=== PATIENT | female | born 1955 | race Caucasian/White ===

== ENCOUNTER 2020-09-27 19:51 | Inpatient (IN) | payer MEDICARE ==
[2020-09-27 19:59] VITALS: RESP 18
[2020-09-27 20:26] LABS: Appearance,Urine Clear (Clear); Bilirubin,Urine Negative (Negative); Blood,Urine Negative (Negative); Color,Urine Yellow; Glucose,Urine (UA) Negative (Negative); Ketones,Urine Negative (Negative); Leukocyte Esterase,Urine Negative (Negative); Nitrite,Urine Negative (Negative); Protein,Urine Negative (Negative); Specific Gravity,Urine 1.013 (1.001-1.035); Urobilinogen,Urine <2.0 mg/dL (<2.0)
--- NOTE | 2020-09-27 20:28 | ED ---
Psych HPI - General Chief Complaint: Psychiatric Symptoms Stated Complaint: Mental Health Time Seen by Provider: 09/27/20 19:55 Source: patient Mode of arrival: ambulatory - History of Present Illness Initial Comments: Patient is a 65 year old female with past medical history of COPD and diabetes who presents to the emergency department accompanied by her daughter. Daughter states the patient has a history of schizophrenia and bipolar. She was hospitalized at [facility] in [place] for several days for mood stabilization. Daughter requested that the patient not be discharged that she did not feel that she was ready however they released the patient today. She went home on trazodone which is a medication the patient had previously overdosed on several years back. The daughter states that the patient has been "all over the place". She has manic behavior. She has tangential thoughts. Patient unaware of surroudings. Daughter states that she's had very abnormal behaviors - behaviors such as being in public and attempting to take her clothes off. Daughter supposed to go back to work tomorrow and she is concerned about the patient staying alone. She is requesting repeat evaluation. - Related Data Home Medications Medication Instructions Recorded Confirmed Albuterol Sulfate [Albuterol 2 puff PO Q6H PRN 09/27/20 09/28/20 Sulfate Hfa] Aspirin EC [Ecotrin Low Dose] 81 mg PO DAILY 09/27/20 09/28/20 Budesonide/Formoterol Fumarate 2 puff INHALATION RT-BID 09/27/20 09/28/20 [Symbicort 160-4.5 Mcg Inhaler] Docusate Sodium [Dok] 100 mg PO BID PRN 09/27/20 09/28/20 glipiZIDE [Glucotrol] 5 mg PO BID 09/27/20 09/28/20 Previous Rx's Medication Instructions Recorded Acetaminophen Tab [Tylenol] 650 mg PO Q4HR PRN tab 09/30/20 Donepezil HCl [Aricept] 5 mg PO HS 30 Days tab 09/30/20 [place] Carbonate 450 mg PO BID 30 Days cap 09/30/20 Melatonin 10 mg PO HS 30 Days tablet 09/30/20 Nicotine 21Mg/24Hr Patch [Habitrol] 1 patch TRANSDERM DAILY 14 Days 09/30/20 patch Prazosin HCl 2 mg PO HS 30 Days cap 09/30/20 Sertraline [Zoloft] 50 mg PO DAILY 30 Days tab 09/30/20 fluPHENAZine [Prolixin 1MG] 2 mg PO BID 30 Days tablet 09/30/20 Allergies Allergy/AdvReac Type Severity Reaction Status Date / Time Penicillins Allergy Unknown Verified 09/28/20 03:26 tuberculin,PPD,multi-puncture Allergy Unknown Verified 09/28/20 03:26 Review of Systems ROS Statement: Those systems with pertinent positive or pertinent negative responses have been documented in the HPI. ROS Other: All systems not noted in ROS Statement are negative. Past Medical History Past Medical History: COPD, Diabetes Mellitus History of Any Multi-Drug Resistant Organisms: None Reported Past Surgical History: Orthopedic Surgery Additional Past Surgical History / Comment(s): right knee, Past Psychological History: Bipolar, Depression, PTSD, Schizophrenia Smoking Status: Current every day smoker Past Alcohol Use History: None Reported Past Drug Use History: None Reported General Exam Limitations: altered mental status General appearance: alert, in no apparent distress Head exam: Present: atraumatic, normocephalic, normal inspection Eye exam: Present: normal appearance, PERRL, EOMI. Absent: scleral icterus, conjunctival injection, periorbital swelling ENT exam: Present: normal exam, mucous membranes moist Neck exam: Present: normal inspection. Absent: tenderness, meningismus, l ymphadenopathy Respiratory exam: Present: normal lung sounds bilaterally. Absent: respiratory distress, wheezes, rales, rhonchi, stridor Cardiovascular Exam: Present: regular rate, normal rhythm, normal heart sounds. Absent: systolic murmur, diastolic murmur, rubs, gallop, clicks GI/Abdominal exam: Present: soft, normal bowel sounds. Absent: distended, tenderness, guarding, rebound, rigid Extremities exam: Present: normal inspection, full ROM, normal capillary refill. Absent: tenderness, pedal edema, joint swelling, calf tenderness Back exam: Present: normal inspection Neurological exam: Present: alert, oriented X3, CN II-XII intact Psychiatric exam: Present: flat affect, other (tangential speech) Skin exam: Present: warm, dry, intact, normal color. Absent: rash Course Vital Signs 09/27/20 19:55 Temperature 97.9 F Pulse Rate 79 Respiratory 18 Rate Blood Pressure 175/83 O2 Sat by Pulse 95 Oximetry Medical Decision Making - Medical Decision Making Upon arrival patient was placed into room 14. A thorough history and physical exam was performed. Accu-Chek is performed and patient provides a urine sample. She is cleared for EPS evaluation. Psychiatrist is requesting laboratory studies. These are performed and results are discussed with the patient. Melany nt to sign herself in and is currently awaiting transfer to [facility]. - Lab Data Result diagrams: 09/27/20 22:33 09/29/20 06:26 Lab Results 09/27/20 09/27/20 09/27/20 Range/Units 20:24 20:24 20:59 WBC (3.8-10.6) k/uL RBC (3.80-5.40) m/uL Hgb (11.4-16.0) gm/dL Hct (34.0-46.0) % MCV (80.0-100.0) fL MCH (25.0-35.0) pg MCHC (31.0-37.0) g/dL RDW (11.5-15.5) % Plt Count (150-450) k/uL MPV Neutrophils % % Lymphocytes % % Monocytes % % Eosinophils % % Basophils % % Neutrophils # (1.3-7.7) k/uL Lymphocytes # (1.0-4.8) k/uL Monocytes # (0-1.0) k/uL Eosinophils # (0-0.7) k/uL Basophils # (0-0.2) k/uL Hypochromasia POC Glucose (mg/dL) 144 H (75-99) mg/dL POC Glu Chief Lock Tender Operator ID Susana Love Estimated Ave Glu mg/dL Hemoglobin A1c (4.0-6.0) % TSH (0.465-4.680) mIU/L Urine Color Yellow Urine Appearance Clear (Clear) Urine pH 7.0 (5.0-8.0) Ur Specific [place] 1.013 (1.001-1.035) Urine Protein Negative (Negative) Urine Glucose (UA) Negative (Negative) Urine Ketones Negative (Negative) Urine Blood Negative (Negative) Urine Nitrite Negative (Negative) Urine Bilirubin Negative (Negative) Urine Urobilinogen <2.0 (<2.0) mg/dL Ur Leukocyte Esterase Negative (Negative) Urine HCG, Qual Not Detected (Not Detectd) Urine Opiates Screen Not Detected (NotDetected) Ur Oxycodone Screen Not Detected (NotDetected) Urine Methadone Screen Not Detected (NotDetected) Ur Propoxyphene Screen Not Detected (NotDetected) Ur Barbiturates Screen Not Detected (NotDetected) U Tricyclic Antidepress Not Detected (NotDetected) Ur Phencyclidine Scrn Not Detected (NotDetected) Ur Amphetamines Screen Not Detected (NotDetected) U Methamphetamines Scrn Not Detected (NotDetected) U Benzodiazepines Scrn Not Detected (NotDetected) Urine Cocaine Screen Not Detected (NotDetected) U Marijuana (THC) Screen Not Detected (NotDetected) Coronavirus (PCR) (Not Detectd) 09/27/20 09/27/20 09/27/20 Range/Units 22:33 22:33 22:33 WBC 8.3 (3.8-10.6) k/uL RBC 4.26 (3.80-5.40) m/uL Hgb 13.3 (11.4-16.0) gm/dL Hct 39.2 (34.0-46.0) % MCV 92.1 (80.0-100.0) fL MCH 31.2 (25.0-35.0) pg MCHC 33.8 (31.0-37.0) g/dL RDW 14.0 (11.5-15.5) % Plt Count 197 (150-450) k/uL MPV 6.8 Neutrophils % 67 % Lymphocytes % 22 % Monocytes % 5 % Eosinophils % 3 % Basophils % 1 % Neutrophils # 5.6 (1.3-7.7) k/uL Lymphocytes # 1.9 (1.0-4.8) k/uL Monocytes # 0.4 (0-1.0) k/uL Eosinophils # 0.2 (0-0.7) k/uL Basophils # 0.1 (0-0.2) k/uL Hypochromasia Slight POC Glucose (mg/dL) (75-99) mg/dL POC Glu Chief Lock Tender Operator ID Estimated Ave Glu mg/dL 123 Hemoglobin A1c 5.9 (4.0-6.0) % TSH 2.170 (0.465-4.680) mIU/L Urine Color Urine Appearance (Clear) Urine pH (5.0-8.0) Ur Specific [place] (1.001-1.035) Urine Protein (Negative) Urine Glucose (UA) (Negative) Urine Ketones (Negative) Urine Blood (Negative) Urine Nitrite (Negative) Urine Bilirubin (Negative) Urine Urobilinogen (<2.0) mg/dL Ur Leukocyte Esterase (Negative) Urine HCG, Qual (Not Detectd) Urine Opiates Screen (NotDetected) Ur Oxycodone Screen (NotDetected) Urine Methadone Screen (NotDetected) Ur Propoxyphene Screen (NotDetected) Ur Barbiturates Screen (NotDetected) U Tricyclic Antidepress (NotDetected) Ur Phencyclidine Scrn (NotDetected) Ur Amphetamines Screen (NotDetected) U Methamphetamines Scrn (NotDetected) U Benzodiazepines Scrn (NotDetected) Urine Cocaine Screen (NotDetected) U Marijuana (THC) Screen (NotDetected) Coronavirus (PCR) (Not Detectd) 09/27/20 Range/Units 22:35 WBC (3.8-10.6) k/uL RBC (3.80-5.40) m/uL Hgb (11.4-16.0) gm/dL Hct (34.0-46.0) % MCV (80.0-100.0) fL MCH (25.0-35.0) pg MCHC (31.0-37.0) g/dL RDW (11.5-15.5) % Plt Count (150-450) k/uL MPV Neutrophils % % Lymphocytes % % Monocytes % % Eosinophils % % Basophils % % Neutrophils # (1.3-7.7) k/uL Lymphocytes # (1.0-4.8) k/uL Monocytes # (0-1.0) k/uL Eosinophils # (0-0.7) k/uL Basophils # (0-0.2) k/uL Hypochromasia POC Glucose (mg/dL) (75-99) mg/dL POC Glu Chief Lock Tender Operator ID Estimated Ave Glu mg/dL Hemoglobin A1c (4.0-6.0) % TSH (0.465-4.680) mIU/L Urine Color Urine Appearance (Clear) Urine pH (5.0-8.0) Ur Specific [place] (1.001-1.035) Urine Protein (Negative) Urine Glucose (UA) (Negative) Urine Ketones (Negative) Urine Blood (Negative) Urine Nitrite (Negative) Urine Bilirubin (Negative) Urine Urobilinogen (<2.0) mg/dL Ur Leukocyte Esterase (Negative) Urine HCG, Qual (Not Detectd) Urine Opiates Screen (NotDetected) Ur Oxycodone Screen (NotDetected) Urine Methadone Screen (NotDetected) Ur Propoxyphene Screen (NotDetected) Ur Barbiturates Screen (NotDetected) U Tricyclic Antidepress (NotDetected) Ur Phencyclidine Scrn (NotDetected) Ur Amphetamines Screen (NotDetected) U Methamphetamines Scrn (NotDetected) U Benzodiazepines Scrn (NotDetected) Urine Cocaine Screen (NotDetected) U Marijuana (THC) Screen (NotDetected) Coronavirus (PCR) Not Detected (Not Detectd) - EKG Data EKG Comments: EKG demonstrates sinus bradycardia with a ventricular rate of 58. IL interval 160. QRS E4. QTC of 410. No acute ST segment elevations or depressions concerning for ischemic changes Disposition Clinical Impression: Acute psychosis Disposition: TRANSFER TO PSYCH HOSP/UNIT Condition: Stable Is patient prescribed a controlled substance at d/c from ED?: No
[2020-09-27 20:47] LABS: Amphetamine Screen,Urine Not Detected (NotDetected); Barbiturate Screen,Urine Not Detected (NotDetected); Benzodiazepines Screen,Urine Not Detected (NotDetected); Cocaine Screen,Urine Not Detected (NotDetected); Methadone Screen, Urine Not Detected (NotDetected); Opiate Screen,Urine Not Detected (NotDetected); Oxycodone Screen, Urine Not Detected (NotDetected); Phencyclidine Screen,Urine Not Detected (NotDetected); Tricyclic Antidepressant,Urine Not Detected (NotDetected); Urn Cannabinoid Scrn Not Detected (NotDetected)
[2020-09-27 21:00] LABS: Glucose,Whole Blood 144 mg/dL (75-99)
[2020-09-27 22:42] LABS: Basophils # (A) 0.1 k/uL (0-0.2); Basophils % (A) 1 %; Eosinophils # (A) 0.2 k/uL (0-0.7); Eosinophils % (A) 3 %; HCT 39.2 % (34.0-46.0); HGB 13.3 gm/dL (11.4-16.0); Hypochromasia Slight; Lymphocytes # (A) 1.9 k/uL (1.0-4.8); Lymphocytes % (A) 22 %; MCH 31.2 pg (25.0-35.0); MCHC 33.8 g/dL (31.0-37.0); MCV 92.1 fL (80.0-100.0); Mean Platelet Volume 6.8; Monocytes # (A) 0.4 k/uL (0-1.0); Monocytes % (A) 5 %; Neutrophils # (A) 5.6 k/uL (1.3-7.7); Neutrophils % (A) 67 %; Platelet Count 197 k/uL (150-450); RBC 4.26 m/uL (3.80-5.40); WBC 8.3 k/uL (3.8-10.6)
[2020-09-28] MEDS ORDERED: traZODone HCL 50 MG TAB PO PRN (00:17)
[2020-09-28] MEDS ORDERED: DOCUSATE 100 MG CAP PO PRN (00:17)
[2020-09-28] MEDS ORDERED: MELATONIN 3 MG TABLET PO PRN (00:17)
[2020-09-28] MEDS ORDERED: ALBUTEROL HFA INHALER INHALATION PRN (00:17)
[2020-09-28] MEDS ORDERED: ACETAMINOPHEN TAB 325 MG TAB PO PRN (00:19)
[2020-09-28] MEDS ORDERED: MAG HYDROX/AL HYDROX/SIMETH 30 ML CUP PO PRN (00:19)
[2020-09-28] MEDS ORDERED: MAGNESIUM HYDROXIDE 2,400 MG/10 ML CUP PO PRN (00:19)
[2020-09-28] MEDS ORDERED: HALOPERIDOL LACTATE 5 MG/ML 1 ML VIAL IM PRN (00:20)
[2020-09-28] MEDS ORDERED: risperiDONE 1 MG TAB PO SCH (09:00)
[2020-09-28] MEDS: ASPIRIN 81 MG PO SCH (09:01)
[2020-09-28] MEDS: LITHIUM CARBONATE 150 MG CAP PO SCH ×2 (09:02→21:29)
[2020-09-28] MEDS: glipiZIDE 5 MG TAB PO SCH ×2 (09:02→21:30)
[2020-09-28] MEDS: NICOTINE 21MG/24HR PATCH TRANSDERM SCH (09:02)
[2020-09-28] MEDS: SERTRALINE 50 MG TAB PO SCH (09:02)
[2020-09-28] MEDS: SYMBICORT 160-4.5 MCG INHALER INHALATION SCH ×2 (09:32→21:27)
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
[2020-09-28 19:17] LABS: Hemoglobin A1C 5.9 % (4.0-6.0)
[2020-09-28] MEDS ORDERED: MELATONIN 3 MG TABLET PO SCH (21:00)
[2020-09-28] MEDS: PRAZOSIN 1 MG CAP PO SCH (21:29)
[2020-09-28] MEDS: DONEPEZIL 5 MG TAB PO SCH (21:29)
--- NOTE | 2020-09-29 00:46 | P.CONS ---
History of Present Illness - Reason for Consult Consult date: 09/28/20 - History of Present Illness The patient is a 65-year-old female with a PMH of schizophrenia and bipolar disorder who was brought into the emergency room by her daughter due to strange behavior. The patient was reportedly at a different hospital in the mental health unit over the past few days due to her mood and was subsequently discharged earlier today. When the daughter took the patient home, she noticed that the patient was having very disorganized thought process and acting strangely, at which time she brought patient in to the emergency room for evaluation. The patient was admitted to the mental health unit where she was seen and evaluated. Patient continued to have disorganized and tangential thought processes and thereby was a poor historian. She reported no active complaints. Denied abdominal pain, chest pain, shortness of breath, fever, chills, nausea, vomiting. Review of Systems Pertinent positives and negatives as discussed in HPI, a complete review of systems was performed and all other systems are negative. Past Medical History Past Medical History: COPD, Diabetes Mellitus History of Any Multi-Drug Resistant Organisms: None Reported Past Surgical History: Orthopedic Surgery Additional Past Surgical History / Comment(s): right knee, Past Psychological History: Bipolar, Depression, PTSD, Schizophrenia Smoking Status: Current every day smoker Past Alcohol Use History: None Reported Past Drug Use History: None Reported Medications and Allergies Home Medications Medication Instructions Recorded Confirmed Type Albuterol Sulfate [Albuterol 2 puff PO Q6H PRN 09/27/20 09/28/20 History Sulfate Hfa] Aspirin EC [Ecotrin Low Dose] 81 mg PO DAILY 09/27/20 09/28/20 History Budesonide/Formoterol Fumarate 2 puff INHALATION RT-BID 09/27/20 09/28/20 History [Symbicort 160-4.5 Mcg Inhaler] Docusate Sodium [Dok] 100 mg PO BID PRN 09/27/20 09/28/20 History Donepezil HCl [Aricept] 5 mg PO HS 09/27/20 09/28/20 History [place] Carbonate 450 mg PO BID 09/27/20 09/28/20 History Melatonin 3 mg PO HS PRN 09/27/20 09/28/20 History Nicotine 21Mg/24Hr Patch [Habitrol] 1 patch TRANSDERM DAILY 09/27/20 09/28/20 History Prazosin HCl 2 mg PO HS 09/27/20 09/28/20 History Sertraline [Zoloft] 50 mg PO DAILY 09/27/20 09/28/20 History clonazePAM 0.5 mg PO HS 09/27/20 09/28/20 History glipiZIDE [Glucotrol] 5 mg PO BID 09/27/20 09/28/20 History risperiDONE [RisperDAL] 1 mg PO BID 09/27/20 09/28/20 History traZODone HCL 50 mg PO HS PRN 09/27/20 09/28/20 History Allergies Allergy/AdvReac Type Severity Reaction Status Date / Time Penicillins Allergy Unknown Verified 09/28/20 03:26 tuberculin,PPD,multi-puncture Allergy Unknown Verified 09/28/20 03:26 Physical Exam Vitals: Vital Signs Temp Pulse Resp BP Pulse Ox 09/28/20 02:38 98.7 F 67 18 132/69 95 Intake and Output 09/28/20 09/28/20 09/28/20 06:59 14:59 22:59 Other: Weight 95.906 kg General: non toxic, no distress, appears at stated age, obese Derm: no unusual rashes/lesions no unusual ecchymoses, warm, dry Head: atraumatic, normocephalic, symmetric Eyes: EOMI, no lid lag, anicteric sclera ENT: Nose and ears atraumatic, no thrush, no pharyngeal erythema Neck: trachea midline, supple Mouth: no lip lesion, mucus membranes moist Cardiovascular: S1S2 reg, no murmur, positive posterior tibial pulse bilateral, no edema, capillary refill less than 2 seconds Lungs: CTA bilateral, no rhonchi, no rales , no accessory muscle use Abdominal: soft, nontender to palpation, no guarding, no appreciable organomegaly, normal bowel sounds Ext: no gross muscle atrophy, muscle strength 5 out of 5 in all 4 extremities grossly, no contractures, Neuro: CN II-XI grossly intact, light touch intact all 4 extremities, finger to nose within normal limits, Psych: Alert, tangential and disorganized thought process Results CBC & Chem 7: 09/27/20 22:33 Assessment and Plan Plan: Chronic conditions: Type II DM, COPD -Continue with home meds Schizophrenia with bipolar disorder -As per psychiatry Thank you for allowing us to participate in the care of this patient. We will follow peripherally. Do not hesitate to contact us with questions. Someone can be reached from the [facility] hospitalist group at all hours of the day at [phone].
[2020-09-29 06:30] VITALS: BP 134/65; PULSE 70
[2020-09-29 07:38] LABS: ALT 10 U/L (4-34); AST 20 U/L (14-36); African American GFR (CKD) >90 (>60 ml/min/1.73 sqM); Albumin 3.7 g/dL (3.5-5.0); Alkaline Phosphatase 67 U/L (38-126); Anion Gap 8 mmol/L; Blood Urea Nitrogen 10 mg/dL (7-17); Calcium 9.2 mg/dL (8.4-10.2); Carbon Dioxide 26 mmol/L (22-30); Chloride 104 mmol/L (98-107); Cholesterol 175 mg/dL (<200); Glucose 106 mg/dL (74-99); HDL Cholesterol 67 mg/dL (40-60); LDL Cholesterol,Calculated 93 mg/dL (0-99); Non-African American GFR(CKD) >90 (>60 ml/min/1.73 sqM); Potassium 4.2 mmol/L (3.5-5.1); Sodium 138 mmol/L (137-145); Total Bilirubin 1.1 mg/dL (0.2-1.3); Total Protein 6.3 g/dL (6.3-8.2); Triglycerides 74 mg/dL (<150)
[2020-09-29] MEDS: SERTRALINE 50 MG TAB PO SCH (08:06)
[2020-09-29] MEDS: LITHIUM CARBONATE 150 MG CAP PO SCH ×2 (08:06→20:56)
[2020-09-29] MEDS: SYMBICORT 160-4.5 MCG INHALER INHALATION SCH ×2 (08:06→20:55)
[2020-09-29] MEDS: NICOTINE 21MG/24HR PATCH TRANSDERM SCH (08:07)
[2020-09-29] MEDS: glipiZIDE 5 MG TAB PO SCH ×2 (08:07→20:56)
[2020-09-29] MEDS: ASPIRIN 81 MG PO SCH (08:07)
[2020-09-29 08:56] LABS: Lithium 0.6 mmol/L
--- NOTE | 2020-09-29 10:06 | P.PN ---
Progress Note - Text Progress Note Date: 09/29/20 Interval History: Patient was seen lying in her bed this morning and was directable and agreeable to speak with chief underwriter in the office. Patient was fairly directable during conversation and attempting to cooperate. Patient continues to have difficulties with her thought process which was disorganized. She answers questions concretely and continues to refer to herself in the third person. She claims that when she was feeling nauseous earlier on today and was coughing however states that the coughing has been chronic from her COPD. She claims that her mood is "fine" and denies any anxiety today. She states that she was able to sleep fairly throughout the night. She did not mention whether she has been going to groups or not. She claims that she feels she needs to take the medications every day and was not reporting any side effects. She was alert and oriented 3 today. At this time patient denies any suicidal or homical ideations, intent or plan. Patient denies any auditory, visual hallucinations and denies any paranoia or delusions. Mental Status Exam: General Appearance: Patient appears to be overweight, stated age is alert, poor attention span, improving mildly. Appears to have intense eye contact. Patient appears to have improving hygiene and grooming. Behavior: Patient is seated without any agitated behavior. Speech: Patient's speech is fluent and nonpressured. Monotone and concrete Mood/Affect: Patient reports their mood is ok, affect is congruent and const ricted. Suicidality/Homicidality: Patient denies having any homicidal ideation intent or plan. Denies any suicidal ideations intent or plan Perceptions: Patient denies any visual hallucinations and denies any auditory hallucinations Though content/process: [place], poverty of content. Disorganized speech and thought content, improving mildly. Memory and concentration: AOX3, grossly intact for the purposes of this session Judgment and insight: Chronically poor, improving mildly Assessment Schizoaffective disorder, bipolar type rule out dementia PTSD Nicotine dependence Plan: -Patient continues to meet criteria for inpatient psychiatric admission for symptom stabilization and safety. Patient has not signed adult voluntary form and medication consent and was placed in patient's chart. -Medications: Continue with Prolixin 2 mg twice a day for psychosis. [place] 450 mg twice a day for mood stabilization, Zoloft 50 mg daily for mood/anxiety, rises into milligrams daily at bedtime for nightmares, melatonin 6 mg daily at bedtime for insomnia. Trazodone 50 mg daily at bedtime when necessary for insomnia. -When necessary Haldol for agitation/aggression. -NRT - nicotine patch -SW on board for discharge planning. Encouraged the patient to participate in milieu. Will attempt to gather further collateral hx from daughter about patients baseline. If patient continues to improve then likely discharge back home tomorrow.
[2020-09-29] MEDS: PRAZOSIN 1 MG CAP PO SCH (20:56)
[2020-09-29] MEDS: DONEPEZIL 5 MG TAB PO SCH (20:56)
[2020-09-29] MEDS ORDERED: MELATONIN 5 MG TABLET PO SCH (21:00)
[2020-09-30] MEDS: SYMBICORT 160-4.5 MCG INHALER INHALATION SCH (08:37)
[2020-09-30] MEDS: NICOTINE 21MG/24HR PATCH TRANSDERM SCH ×2 (08:37→09:54)
[2020-09-30] MEDS: glipiZIDE 5 MG TAB PO SCH (08:38)
[2020-09-30] MEDS: LITHIUM CARBONATE 150 MG CAP PO SCH (08:38)
[2020-09-30] MEDS: ASPIRIN 81 MG PO SCH (08:38)
[2020-09-30] MEDS: SERTRALINE 50 MG TAB PO SCH (08:38)
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
[2020-09-30 10:25] VITALS: TEMP 97.5
== END 2020-09-30 11:08 | disposition home or self-care (01) | DRG 885 ==
LOC: EC 19:51 → 3MHU 09-28 00:14
PROVIDERS: ADMIT Psychiatry & Neurology Psychiatry; ATTEND Psychiatry & Neurology Psychiatry
DX: F25.0 Schizoaffective disorder, bipolar type (principal); F03.90 Unspecified dementia, unspecified severity, without behavioral disturbance, psychotic disturbance, mood disturbance, and anxiety; E11.9 Type 2 diabetes mellitus without complications; F17.210 Nicotine dependence, cigarettes, uncomplicated; F43.10 Post-traumatic stress disorder, unspecified; G47.00 Insomnia, unspecified; J44.9 Chronic obstructive pulmonary disease, unspecified; Z20.822 Contact with and (suspected) exposure to COVID-19; Z79.51 Long term (current) use of inhaled steroids; Z79.899 Other long term (current) drug therapy; Z79.84 Long term (current) use of oral hypoglycemic drugs; Z79.82 Long term (current) use of aspirin; Z91.5 Personal history of self-harm
CPT/HCPCS: 36415; 80053; 80061; 80178; 80306; 81003; 81025; 82075; 83036; 84443; 85025; 87635; 94640; 99285

== ENCOUNTER 2023-02-01 20:02 | Emergency (ER) | payer MEDICARE ==
[2023-02-01] MEDS ORDERED: IPRATROPIUM-ALBUTEROL 3 ML NEB INHALATION STA (20:12)
[2023-02-01 20:14] VITALS: TEMP 98.9
--- NOTE | 2023-02-01 20:28 | ED ---
SOB HPI - General Chief Complaint: Shortness of Breath Stated Complaint: Difficulty Breathing Time Seen by Provider: 02/01/23 20:12 Source: patient, EMS, RN notes reviewed, old records reviewed Mode of arrival: EMS Limitations: no limitations - History of Present Illness Initial Comments: This is a 67-year-old female to the ER today. This patient presents today for evaluation regards to not feeling well shortness of breath with increased cough and congestion. Patient has no current chest pain does feel lightheaded and dizzy but improved after breathing treatment per EMS. Patient has no recent fever increased cough and congestion recently treated with antibiotics. Patient suffer from COPD with continuing to smoke MD Complaint: shortness of breath, cough, chest pain, "asthma attack", anxiety -: hour(s) Severity: moderate Severity scale (1-10): 7 Quality: sharp Consistency: intermittent Improves With: nothing Worsens With: nothing Known History Of: COPD Context: recent URI Associated Symptoms: denies other symptoms - Related Data Home Medications Medication Instructions Recorded Confirmed Albuterol Sulfate [Albuterol 2 puff PO Q6H PRN 09/27/20 09/28/20 Sulfate Hfa] Aspirin EC [Ecotrin Low Dose] 81 mg PO DAILY 09/27/20 09/28/20 Budesonide/Formoterol Fumarate 2 puff INHALATION RT-BID 09/27/20 09/28/20 [Symbicort 160-4.5 Mcg Inhaler] Docusate Sodium [Dok] 100 mg PO BID PRN 09/27/20 09/28/20 glipiZIDE [Glucotrol] 5 mg PO BID 09/27/20 09/28/20 Previous Rx's Medication Instructions Recorded Acetaminophen Tab [Tylenol] 650 mg PO Q4HR PRN tab 09/30/20 Donepezil HCl [Aricept] 5 mg PO HS 30 Days tab 09/30/20 Bright Carbonate 450 mg PO BID 30 Days cap 09/30/20 Melatonin 10 mg PO HS 30 Days tablet 09/30/20 Nicotine 21Mg/24Hr Patch [Habitrol] 1 patch TRANSDERM DAILY 14 Days 09/30/20 patch Prazosin HCl 2 mg PO HS 30 Days cap 09/30/20 Sertraline [Zoloft] 50 mg PO DAILY 30 Days tab 09/30/20 fluPHENAZine [Prolixin 1MG] 2 mg PO BID 30 Days tablet 09/30/20 predniSONE 50 mg PO DAILY #5 tab 02/01/23 Allergies Allergy/AdvReac Type Severity Reaction Status Date / Time Penicillins Allergy Unknown Verified 09/28/20 03:26 tuberculin,PPD,multi-puncture Allergy Unknown Verified 09/28/20 03:26 Review of Systems ROS Statement: Those systems with pertinent positive or pertinent negative responses have been documented in the HPI. ROS Other: All systems not noted in ROS Statement are negative. Past Medical History Past Medical History: COPD, Diabetes Mellitus History of Any Multi-Drug Resistant Organisms: None Reported Past Surgical History: Orthopedic Surgery Additional Past Surgical History / Comment(s): right knee, Past Psychological History: Bipolar, Depression, PTSD, Schizophrenia Smoking Status: Current every day smoker Past Alcohol Use History: None Reported Past Drug Use History: None Reported General Exam Limitations: no limitations General appearance: alert, in no apparent distress, anxious Head exam: Present: atraumatic, normocephalic, normal inspection Eye exam: Present: normal appearance, PERRL, EOMI. Absent: scleral icterus, conjunctival injection, periorbital swelling ENT exam: Present: normal exam, mucous membranes moist Neck exam: Present: normal inspection. Absent: tenderness, meningismus, lymphadenopathy Respiratory exam: Present: normal lung sounds bilaterally. Absent: respiratory distress, wheezes, rales, rhonchi, stridor Cardiovascular Exam: Present: regular rate, normal rhythm, normal heart sounds. Absent: systolic murmur, diastolic murmur, rubs, gallop, clicks GI/Abdominal exam: Present: soft, normal bowel sounds. Absent: distended, tenderness, guarding, rebound, rigid Extremities exam: Present: normal inspection, full ROM, normal capillary refill. Absent: tenderness, pedal edema, joint swelling, calf tenderness Back exam: Present: normal inspection Neurological exam: Present: alert, oriented X3, CN II-XII intact Psychiatric exam: Present: normal affect, normal mood Skin exam: Present: warm, dry, intact, normal color. Absent: rash Course Vital Signs 02/01/23 02/01/23 02/01/23 20:11 21:09 21:23 Temperature 98.9 F Pulse Rate 69 68 70 Respiratory 18 24 Rate Blood Pressure 110/56 O2 Sat by Pulse 96 Oximetry 02/01/23 22:05 Temperature Pulse Rate 69 Respiratory 18 Rate Blood Pressure 141/66 O2 Sat by Pulse 97 Oximetry - Reevaluation(s) Reevaluation #1: 02/01/23 21:53 Medical records reviewed Reevaluation #2: 02/01/23 21:53 Patient symptoms dramatically improved asking to go home Reevaluation #3: 02/01/23 21:53 Patient informed results questions answered Reevaluation #4: 02/01/23 21:53 Was pt. sent in by a medical professional or institution? @ -no Did you speak to anyone other than the patient for history? @ -no Did you review nursing and triage notes? @ -agree Were old charts reviewed? @ -no Differential Diagnosis? @ -prior EKG interpreted by me (3pts min.)? @ -yes X-rays interpreted by me (1pt min.)? @ -yes CT interpreted by me (1pt min.)? @ -no U/S interpreted by me (1pt. min.)? @ -no What testing was considered but not performed? (CT, X-rays, U/S, labs)? Why? @ -no What meds were considered but not given? Why? @ -no Did you discuss the management of the patient with other professionals? @ -no Did you reconcile home meds? @ -no Was smoking cessation discussed for >3mins.? @ -yes Was critical care preformed (if so, how long)? @ -no Were there social determinants of health that impacted care today? How? (Homelessness, low income, unemployed, alcoholism, drug addiction, transportation, low edu. Level, literacy, decrease access to med. care, usp, rehab)? @ -no Was there de-escalation of care discussed even if they declined? (Discuss DNR or withdrawal of care, Hospice)? @ -no What co-morbidities impacted this encounter? (DM, HTN, Smoking, COPD, CAD, Cancer, CVA, Hep., AIDS, mental health diagnosis, sleep apnea, morbid obesity)? @ -none Was patient admitted / discharged? @ -67 female to the emergency department with severe shortness of breath bronchitis acute on chronic bronchitis and anxiety, patient does have CHF on x- ray as well she wouldn't increase shortness of breath, patient symptoms are improved here in the ER and she can be discharged home Discharge Undiagenosed new problem with uncertain prognosis? @ -no Drug Therapy requiring intensive monitoring for toxicity (Heparin, Nitro, Insulin, Cardizem)? @ -no Were any procedures done? @ -no Diagnosis/symptom? @ -COPD exacerbation with CHF Acute, or Chronic, or Acute on Chronic? @ -Acute Uncomplicated (without systemic symptoms) or Complicated (systemic symptoms)? @ -uncomplicated Side effects of treatment? @ -no Exacerbation, Progression, or Severe Exacerbation] @ -Exacerbation Poses a threat to life or bodily function? @ -yes with hypoxia and COPD, complicated by CHF Reevaluation #5: 02/01/23 21:53 Differential Dyspnea: Coronary syndrome, arrhythmia, tamponade, asthma, COPD, pulmonary embolism, pneu monia, pneumothorax, pulmonary effusion, anaphylaxis, diabetic ketoacidosis, flailed chest, pulmonary contusion, diaphragmatic rupture, anemia, neuromuscular, this is not meant to be an all-inclusive list. Medical Decision Making - Medical Decision Making 67 female to the emergency department with severe shortness of breath bronchitis acute on chronic bronchitis and anxiety, patient does have CHF on x-ray as well she wouldn't increase shortness of breath, patient symptoms are improved here in the ER and she can be discharged home - Lab Data Result diagrams: 02/01/23 20:16 02/01/23 20:16 Lab Results 02/01/23 02/01/23 02/01/23 Range/Units 20:16 20:16 20:16 WBC 4.9 (3.8-10.6) k/uL RBC 3.97 (3.80-5.40) m/uL Hgb 12.3 (11.4-16.0) gm/dL Hct 37.4 (34.0-46.0) % MCV 94.2 (80.0-100.0) fL MCH 31.0 (25.0-35.0) pg MCHC 32.9 (31.0-37.0) g/dL RDW 12.7 (11.5-15.5) % Plt Count 153 (150-450) k/uL MPV 7.3 Neutrophils % 63 % Lymphocytes % 26 % Monocytes % 7 % Eosinophils % 2 % Basophils % 0 % Neutrophils # 3.1 (1.3-7.7) k/uL Lymphocytes # 1.3 (1.0-4.8) k/uL Monocytes # 0.3 (0-1.0) k/uL Eosinophils # 0.1 (0-0.7) k/uL Basophils # 0.0 (0-0.2) k/uL PT 9.7 (9.0-12.0) sec INR 0.9 (<1.2) APTT 22.0 (22.0-30.0) sec Sodium 137 (137-145) mmol/L Potassium 3.3 L (3.5-5.1) mmol/L Chloride 102 (98-107) mmol/L Carbon Dioxide 27 (22-30) mmol/L Anion Gap 8 mmol/L BUN 16 (7-17) mg/dL Creatinine 0.62 (0.52-1.04) mg/dL Est GFR (CKD-EPI)AfAm >90 (>60 ml/min/1.73 sqM) Est GFR (CKD-EPI)NonAf >90 (>60 ml/min/1.73 sqM) Glucose 151 H (74-99) mg/dL Plasma Lactic Acid Elio (0.7-2.0) mmol/L Calcium 8.8 (8.4-10.2) mg/dL Magnesium 1.8 (1.6-2.3) mg/dL Total Bilirubin 0.7 (0.2-1.3) mg/dL AST 15 (14-36) U/L ALT 13 (4-34) U/L Alkaline Phosphatase 47 (38-126) U/L Troponin I (0.000-0.034) ng/mL NT-Pro-B Natriuret Pep pg/mL Total Protein 5.8 L (6.3-8.2) g/dL Albumin 3.6 (3.5-5.0) g/dL 02/01/23 02/01/23 02/01/23 Range/Units 20:16 20:16 20:16 WBC (3.8-10.6) k/uL RBC (3.80-5.40) m/uL Hgb (11.4-16.0) gm/dL Hct (34.0-46.0) % MCV (80.0-100.0) fL MCH (25.0-35.0) pg MCHC (31.0-37.0) g/dL RDW (11.5-15.5) % Plt Count (150-450) k/uL MPV Neutrophils % % Lymphocytes % % Monocytes % % Eosinophils % % Basophils % % Neutrophils # (1.3-7.7) k/uL Lymphocytes # (1.0-4.8) k/uL Monocytes # (0-1.0) k/uL Eosinophils # (0-0.7) k/uL Basophils # (0-0.2) k/uL PT (9.0-12.0) sec INR (<1.2) APTT (22.0-30.0) sec Sodium (137-145) mmol/L Potassium (3.5-5.1) mmol/L Chloride (98-107) mmol/L Carbon Dioxide (22-30) mmol/L Anion Gap mmol/L BUN (7-17) mg/dL Creatinine (0.52-1.04) mg/dL Est GFR (CKD-EPI)AfAm (>60 ml/min/1.73 sqM) Est GFR (CKD-EPI)NonAf (>60 ml/min/1.73 sqM) Glucose (74-99) mg/dL Plasma Lactic Acid Elio 1.4 (0.7-2.0) mmol/L Calcium (8.4-10.2) mg/dL Magnesium (1.6-2.3) mg/dL Total Bilirubin (0.2-1.3) mg/dL AST (14-36) U/L ALT (4-34) U/L Alkaline Phosphatase (38-126) U/L Troponin I <0.012 (0.000-0.034) ng/mL NT-Pro-B Natriuret Pep 63 pg/mL Total Protein (6.3-8.2) g/dL Albumin (3.5-5.0) g/dL - EKG Data -: EKG Interpreted by Me (EKG is paced 63 TN 103 QRS 100 QTc 402) - Radiology Data Radiology results: report reviewed (Chest x-ray showing CHF signs, pulmonary edema), image reviewed Disposition Clinical Impression: Acute exacerbation of chronic obstructive pulmonary disease, Congestive heart failure, Systolic congestive heart failure, Schizoaffective disorder, bipolar type, Nicotine dependence Disposition: HOME SELF-CARE Condition: Fair Instructions (If sedation given, give patient instructions): Acute Bronchitis (ED), Chronic Bronchitis (ED) Prescriptions: predniSONE 50 mg PO DAILY #5 tab Is patient prescribed a controlled substance at d/c from ED?: No Referrals: None,Stated [Primary Care Provider] - 1-2 days Time of Disposition: 21:45
[2023-02-01 20:34] LABS: Basophils % (A) 0 %; Eosinophils # (A) 0.1 k/uL (0-0.7); Eosinophils % (A) 2 %; HCT 37.4 % (34.0-46.0); HGB 12.3 gm/dL (11.4-16.0); Lymphocytes # (A) 1.3 k/uL (1.0-4.8); Lymphocytes % (A) 26 %; MCHC 32.9 g/dL (31.0-37.0); MCV 94.2 fL (80.0-100.0); Mean Platelet Volume 7.3; Monocytes # (A) 0.3 k/uL (0-1.0); Monocytes % (A) 7 %; Neutrophils # (A) 3.1 k/uL (1.3-7.7); Neutrophils % (A) 63 %; Platelet Count 153 k/uL (150-450); RBC 3.97 m/uL (3.80-5.40); RDW 12.7 % (11.5-15.5); WBC 4.9 k/uL (3.8-10.6)
--- NOTE | 2023-02-01 20:40 | XR ---
EXAMINATION TYPE: XR chest 1V portable DATE OF EXAM: 02/01/2023 8:28 PM COMPARISON: Chest radiographs from 01/08/2023 TECHNIQUE: XR chest 1V portable Frontal view of the chest. CLINICAL INDICATION:Female, 67 years old with history of cp; FINDINGS: Lungs/Pleura: There is no evidence of pleural effusion, focal consolidation, or pneumothorax. Pulmonary vascularity: Pulmonary vascular congestion. Heart/mediastinum: Cardiomediastinal silhouette is enlarged and stable. Two lead cardiac conduction d evice overlying the left hemithorax with lead tips projecting over the right ventricle and right atri um. Musculoskeletal: No acute osseous pathology. IMPRESSION: Cardiomegaly and mild pulmonary vascular congestion. Correlate with BNP for congestive heart failure.
[2023-02-01 20:41] LABS: ALT 13 U/L (4-34); AST 15 U/L (14-36); African American GFR (CKD) >90 (>60 ml/min/1.73 sqM); Albumin 3.6 g/dL (3.5-5.0); Alkaline Phosphatase 47 U/L (38-126); Anion Gap 8 mmol/L; Blood Urea Nitrogen 16 mg/dL (7-17); Calcium 8.8 mg/dL (8.4-10.2); Carbon Dioxide 27 mmol/L (22-30); Chloride 102 mmol/L (98-107); Glucose 151 mg/dL (74-99); Magnesium 1.8 mg/dL (1.6-2.3); Non-African American GFR(CKD) >90 (>60 ml/min/1.73 sqM); Potassium 3.3 mmol/L (3.5-5.1); Sodium 137 mmol/L (137-145); Total Bilirubin 0.7 mg/dL (0.2-1.3); Total Protein 5.8 g/dL (6.3-8.2)
[2023-02-01 20:52] LABS: INR 0.9 (<1.2); Prothrombin Time 9.7 sec (9.0-12.0)
[2023-02-01] MEDS ORDERED: LORazepam 2 MG/ML INJ IV STA (21:48)
[2023-02-01] MEDS ORDERED: DEXAMETHASONE SOD PHOSPHATE 10 MG/ML 1 ML VIAL IVP STA (21:48)
[2023-02-01] MEDS ORDERED: FUROSEMIDE 10 MG/ML 10 ML VIAL IV STA (21:55)
[2023-02-01] MEDS ORDERED: POTASSIUM CHLORIDE ER 20 MEQ TAB.ER PO STA (21:55)
[2023-02-01 22:06] VITALS: BP 141/66; PULSE 69; RESP 18
== END 2023-02-01 22:24 | disposition home or self-care (01) ==
LOC: EC 20:02
DX: J44.1 Chronic obstructive pulmonary disease with (acute) exacerbation (principal); I50.20 Unspecified systolic (congestive) heart failure; F25.0 Schizoaffective disorder, bipolar type; E11.9 Type 2 diabetes mellitus without complications; F17.200 Nicotine dependence, unspecified, uncomplicated; Z79.84 Long term (current) use of oral hypoglycemic drugs; Z79.82 Long term (current) use of aspirin; Z79.899 Other long term (current) drug therapy; Z88.0 Allergy status to penicillin; Z88.8 Allergy status to other drugs, medicaments and biological substances
CPT/HCPCS: 36415; 94640; 93005; 83880; 80053; 83605; 83735; 84484; 85025; 85610; 85730; 71045; 99285; 96374; 96375 ×2; J2060; J1100; J1940

== ENCOUNTER 2024-03-04 19:46 | Emergency (ER) | payer MEDICARE ==
[2024-03-04 19:51] VITALS: TEMP 98.2
[2024-03-04 20:04] VITALS: RESP 18
--- NOTE | 2024-03-04 20:04 | ED ---
Chest Pain HPI - General Chief Complaint: Chest Pain Stated Complaint: chest pain Time Seen by Provider: 03/04/24 19:58 Source: patient, EMS, RN notes reviewed, old records reviewed Mode of arrival: EMS Limitations: no limitations - History of Present Illness Initial Comments: This is a 68-year-old female to ER for evaluation presents multiple complaints shortness of breath abdominal pain chest pain weakness not feeling well. MD Complaint: chest pain Onset: during rest, during exertion Pain Location: substernal Pain Radiation: none Severity: mild Severity scale (1-10): 1 Quality: aching Consistency: constant Improves With: nothing Worsens With: nothing Other Symptoms: cough Treatments Prior to Arrival: none - Related Data Home Medications Medication Instructions Recorded Confirmed Albuterol Sulfate [Albuterol 2 puff PO RT-Q6H PRN 09/27/20 03/04/24 Sulfate Hfa] Albuterol Nebulized [Ventolin 2.5 mg INHALATION RT-QID 03/04/24 03/04/24 Nebulized] Apixaban [Eliquis] 5 mg PO BID@0900,1700 03/04/24 03/04/24 Atorvastatin [Lipitor] 40 mg PO HS 03/04/24 03/04/24 Enalapril [Vasotec] 5 mg PO DAILY 03/04/24 03/04/24 Escitalopram [Lexapro] 10 mg PO DAILY 03/04/24 03/04/24 Exenatide Microspheres [Bydureon 2 mg SQ FR 03/04/24 03/04/24 Bcise Auto-Injector] [place] Carbonate ER [Lithobid] 450 mg PO HS 03/04/24 03/04/24 Metoprolol Succinate (ER) [Toprol 12.5 mg PO DAILY 03/04/24 03/04/24 Xl] clonazePAM [KlonoPIN] 0.5 mg PO HS 03/04/24 03/04/24 lisinopriL [Zestril] 5 mg PO DAILY 03/04/24 03/04/24 risperiDONE [RisperDAL] 1 mg PO DAILY 03/04/24 03/04/24 risperiDONE [RisperDAL] 2 mg PO DAILY@1700 03/04/24 03/04/24 traZODone HCL [Desyrel] 50 mg PO 03/04/24 03/04/24 Allergies Allergy/AdvReac Type Severity Reaction Status Date / Time Penicillins Allergy Rash/Hives Verified 03/04/24 20:52 tuberculin,PPD,multi-puncture Allergy Unknown Verified 03/04/24 20:52 Review of Systems ROS Statement: Those systems with pertinent positive or pertinent negative responses have been documented in the HPI. ROS Other: All systems not noted in ROS Statement are negative. EKG Findings - EKG Comments: EKG Findings:: EKG is sinus 78 SC 165 QRS 141 QTc 407 - EKG Results: EKG: interpreted by ERMD Past Medical History Past Medical History: COPD, Diabetes Mellitus History of Any Multi-Drug Resistant Organisms: None Reported Past Surgical History: Orthopedic Surgery Additional Past Surgical History / Comment(s): right knee, Past Psychological History: Bipolar, Depression, PTSD, Schizophrenia Smoking Status: Former smoker Past Alcohol Use History: None Reported Past Drug Use History: None Reported General Exam Limitations: no limitations Course Vital Signs 03/04/24 03/04/24 03/04/24 19:48 20:02 20:59 Temperature 98.2 F Pulse Rate 84 84 67 Respiratory 20 18 18 Rate Blood Pressure 116/56 109/79 121/63 O2 Sat by Pulse 99 100 98 Oximetry 03/04/24 03/04/24 03/04/24 22:00 22:19 22:24 Temperature Pulse Rate 73 67 72 Respiratory 18 Rate Blood Pressure 122/61 O2 Sat by Pulse 100 Oximetry 03/04/24 23:22 Temperature Pulse Rate 71 Respiratory 18 Rate Blood Pressure 130/55 O2 Sat by Pulse Oximetry - Reevaluation(s) Reevaluation #1: 03/04/24 23:02 Medical records reviewed Reevaluation #2: 03/04/24 23:02 Patient symptoms unchanged Reevaluation #3: 03/04/24 23:02 Patient informed of results and questions answered Reevaluation #4: Was pt. sent in by a medical professional or institution (, PA, FOUNDER AND CHIEF EXECUTIVE OFFICER, urgent care, hospital, or intermediate...) When possible be specific @ -no Did you speak to anyone other than the patient for history (EMS, parent, family, police, friend...)? What history was obtained from this source @ -no Did you review nursing and triage notes (agree or disagree)? Why? @ -agree Are old charts reviewed (outside hosp., previous admission, EMS record, old EKG, old radiological studies, urgent care reports/EKG's, intermediate records)? Report findings @ -yes Differential Diagnosis (chest pain, altered mental status, abdominal pain women, abdominal pain men, vaginal bleeding, weakness, fever, dyspnea, syncope, headache, dizziness, GI bleed, back pain, seizure, CVA, palpatations, mental health, musculoskeletal)? @ -prior EKG interpreted by me (3pts min.). @ -yes X-rays interpreted by me (1pt min.). @ -yes negative for acute disease CT interpreted by me (1pt min.). @ -no U/S interpreted by me (1pt. min.). @ -no What testing was considered but not performed or refused? (CT, X-rays, U/S, labs)? Why? @ -none What meds were considered but not given or refused? Why? @ -none Did you discuss the management of the patient with other professionals (professionals i.e. , PA, FOUNDER AND CHIEF EXECUTIVE OFFICER, lab, RT, psych nurse, social welfare administrator, assessment services manager, teacher, armored vehicle officer, case managers)? Give summary @ -no Was smoking cessation discussed for >3mins.? @ -no Was critical care preformed (if so, how long)? @ -no Were there social determinants of health that impacted care today? How? (Homelessness, low income, unemployed, alcoholism, drug addiction, transportation, low edu. Level, literacy, decrease access to med. care, intermediate, rehab)? @ -none Was there de-escalation of care discussed even if they declined (Discuss DNR or withdrawal of care, Hospice)? DNR status @ -no What co-morbidities impacted this encounter? (DM, HTN, Smoking, COPD, CAD, Cancer, CVA, ARF, Chemo, Hep., AIDS, mental health diagnosis, sleep apnea, morbid obesity)? @ -none Was patient admitted / discharged? Hospital course, mention meds given and route, prescriptions, significant lab abnormalities, going to OR and other pertinent info. @ - Undiagnosed new problem with uncertain prognosis? @ -no Drug Therapy requiring intensive monitoring for toxicity (Heparin, Nitro, Insulin, Cardizem)? @ -no Were any procedures done? @ -no Diagnosis/symptom? @ - Acute, or Chronic, or Acute on Chronic? @ -Acute Uncomplicated (without systemic symptoms) or Complicated (systemic symptoms)? @ -Complicated Side effects of treatment? @ -no Exacerbation, Progression, or Severe Exacerbation? @ -exacerbation Poses a threat to life or bodily function? How? (Chest pain, [place], [place], pneumonia, PE, COPD, DKA, ARF, appy, cholecystitis, CVA, Diverticulitis, Homicidal, Suicidal, threat to staff... and all critical care pts) @ -yes Reevaluation #5: Differential Dyspnea: Coronary syndrome, arrhythmia, tamponade, asthma, COPD, pulmonary embolism, pneumonia, pneumothorax, pulmonary effusion, anaphylaxis, diabetic ketoacidosis, flailed chest, pulmonary contusion, diaphragmatic rupture, anemia, neuromuscular, this is not meant to be an all-inclusive list. Chest Pain MDM - MDM 68 female to the ER for evaluation patient presents for shortness of breath although symptoms currently resolved. Patient has normal testing here in the ER feels well can be discharged home Disposition Clinical Impression: CHF (congestive heart failure), Pulmonary edema Disposition: HOME SELF-CARE Condition: Good Instructions (If sedation given, give patient instructions): Pulmonary Edema (ED), Heart Failure (ER) Is patient prescribed a controlled substance at d/c from ED?: No Referrals: None,Stated [Primary Care Provider] - 1-2 days Time of Disposition: 23:20
[2024-03-04] MEDS: SODIUM CHLORIDE 0.9% 1,000 ML IV STA ×2 (20:18→20:58)
[2024-03-04 20:49] LABS: INR 0.9 (<1.2); Partial Thromboplastin Time 23.8 sec (22.0-30.0); Prothrombin Time 10.4 sec (10.0-12.5)
[2024-03-04 20:56] LABS: Basophils % (A) 1 %; Eosinophils # (A) 0.2 k/uL (0-0.7); Eosinophils % (A) 2 %; HCT 37.6 % (34.0-46.0); HGB 12.1 gm/dL (11.4-16.0); Lymphocytes # (A) 1.6 k/uL (1.0-4.8); Lymphocytes % (A) 18 %; MCH 28.6 pg (25.0-35.0); MCHC 32.1 g/dL (31.0-37.0); Mean Platelet Volume 7.3; Monocytes # (A) 0.6 k/uL (0-1.0); Monocytes % (A) 6 %; Neutrophils # (A) 6.4 k/uL (1.3-7.7); Neutrophils % (A) 72 %; Platelet Count 190 k/uL (150-450); RBC 4.23 m/uL (3.80-5.40); RDW 14.4 % (11.5-15.5); WBC 8.8 k/uL (3.8-10.6)
[2024-03-04 21:10] LABS: Appearance,Urine Cloudy (Clear); Bilirubin,Urine Negative (Negative); Blood,Urine Negative (Negative); Color,Urine Yellow; Glucose,Urine (UA) 1+ (Negative); Hyaline Casts,Urine 4 /lpf (0-2); Ketones,Urine Negative (Negative); Leukocyte Esterase,Urine Large (Negative); Mucus,Urine Occasional /hpf; Nitrite,Urine Negative (Negative); PH, Urine 6.5 (5.0-8.0); Protein,Urine 1+ (Negative); RBC,Urine 2 /hpf (0-5); Squamous Epithelial Cell,Urine 5 /hpf (0-4); WBC,Urine 22 /hpf (0-5)
[2024-03-04 21:16] LABS: ALT 10 U/L (4-34); AST 13 U/L (14-36); African American GFR (CKD) >90 (>60 ml/min/1.73 sqM); Albumin 3.5 g/dL (3.5-5.0); Alkaline Phosphatase 70 U/L (38-126); Anion Gap 4 mmol/L; Blood Urea Nitrogen 9 mg/dL (7-17); Calcium 8.6 mg/dL (8.4-10.2); Carbon Dioxide 23 mmol/L (22-30); Chloride 108 mmol/L (98-107); Glucose 225 mg/dL (74-99); Magnesium 1.8 mg/dL (1.6-2.3); Non-African American GFR(CKD) >90 (>60 ml/min/1.73 sqM); Potassium 3.9 mmol/L (3.5-5.1); Sodium 135 mmol/L (137-145); Total Bilirubin 0.7 mg/dL (0.2-1.3); Total Protein 5.6 g/dL (6.3-8.2)
[2024-03-04 21:23] LABS: NT-Pro-B-Type Natriuretic Pept 26 pg/mL
[2024-03-04] MEDS: IPRATROPIUM-ALBUTEROL 3 ML NEB INHALATION STA (22:18)
--- NOTE | 2024-03-04 23:06 | XR ---
EXAM: XR chest 1V portable CLINICAL INDICATION:Female, 68 years old with history of sob; [facility] COMPARISON: 02/01/2023 TECHNIQUE: Chest single view. FINDINGS: Lines/tubes/devices: Left chest dual-lead pacemaker with lead tips in stable position over the RA and RV. Cardiomediastinum: Stable CM silhouette. Heart appears enlarged. Vasculature: Increased central vascular congestion and diffuse interstitial prominence compared to p rior. Lungs/pleura: Possible trace pleural effusions. Bilateral basilar atelectasis. No focal consolidation or pneumothor ax. Bones/soft tissues: Bony thorax appears grossly intact as seen. Regional soft tissues appear unremarkable. IMPRESSION: 1. Stable cardiomegaly. Dual-lead pacemaker in place. 2. Increased pulmonary vascular congestion and interstitial markings, suggesting edema over pneumoni tis. Correlate clinically for mild CHF.
[2024-03-04] MEDS: FUROSEMIDE 10 MG/ML 10 ML VIAL IV STA (23:18)
[2024-03-04 23:23] VITALS: BP 130/55; PULSE 71
== END 2024-03-04 23:43 | disposition home or self-care (01) ==
LOC: EC 19:46
DX: I50.1 Left ventricular failure, unspecified (principal); Z87.891 Personal history of nicotine dependence; Z88.0 Allergy status to penicillin; Z88.8 Allergy status to other drugs, medicaments and biological substances
CPT/HCPCS: 36415; 94640; 93005; 83880; 80053; 83735; 84484; 85025; 85610; 85730; 81001; 71045; 99285; 96374; 96361 ×3; J1940